=== PATIENT | male | born 1960 | race African-American/Black ===

== ENCOUNTER 2020-04-29 07:27 | Inpatient (IN) ==
[2020-04-26 12:02] LABS: Basophils % 0.8 % (0.0-0.8); Eosinophils % 0.8 % (0.00-10.9); Hematocrit 36.5 VOL% (42.0-52.0); Hemoglobin 11.8 GM/DL (14.0-18.0); Lymphocytes # 1.3 10*3/uL (1.4-4.0); Lymphocytes % 36.3 % (21.2-54.2); Mean Corpuscular HGB Conc 32.3 GM/DL (32-36); Mean Corpuscular Volume 83.5 FL (87-102); Mean Platelet Volume 10.9 FL (9.6-12.0); Monocytes % 9.9 % (1.7-12.7); Neutrophils % 52.2 % (38.7-73.9); Platelet Count 224 T/CUMM (130-400); Red Blood Count 4.37 MC/CUMM (3.8-5.5); Red Cell Distribution Width 12.5 % (9.3-17.3); White Blood Count 3.5 T/CUMM (4-12)
[2020-04-26 12:22] LABS: Albumin 3.5 G/DL (3.4-5.0); Bilirubin,Total 0.6 MG/DL (0.2-1.0); Calcium 9.2 MG/DL (8.5-10.1); Osmolality,Calculated 279.3 MOS/KG (273-304)
[~2020-04-29 07:27] MED LIST: cefOXitin 1,000 MG in SYRINGE 1 EACH IV ONE
[2020-04-29] MEDS ORDERED: PANTOPRAZOLE 40 MG TABLET PO ONE (08:09)
[2020-04-29] MEDS: LACTATED RINGERS 1,000 ML IV SCH (08:28)
[2020-04-29] MEDS ORDERED: FAMOTIDINE 20 MG TABLET ONE (08:30)
[2020-04-29] MEDS ORDERED: FAMOTIDINE 20 MG TABLET PO ONE (09:06)
[2020-04-29] MEDS ORDERED: TISSUE ADHESIVE 1 EACH APPLICATOR TOP ONE (12:56)
[2020-04-29] MEDS ORDERED: BUPIVACAINE 0.5% 50 ML VIAL ONE (12:56)
[2020-04-29] MEDS ORDERED: LIDOCAINE 1%/EPI INJ 20 ML VIAL ONE (12:57)
[2020-04-29] MEDS ORDERED: INDOCYANINE GREEN 25 MG VIAL IV ONE (12:57)
[2020-04-29] MEDS ORDERED: ONDANSETRON 4 MG/2 ML VIAL IV PRN (17:29)
[2020-04-29] MEDS ORDERED: LIDOCAINE 2% 5 ML VIAL ONE (17:45)
[2020-04-29] MEDS ORDERED: MIDAZOLAM 2 MG/2 ML VIAL ONE (17:45)
[2020-04-29] MEDS ORDERED: DEXAMETHASONE 4 MG/1 ML VIAL ONE (17:45)
[2020-04-29] MEDS ORDERED: propofoL 200 MG/20 ML VIAL IV ONE (17:45)
[2020-04-29] MEDS ORDERED: SEVOFLURANE 1 UNIT/15 MINUTE INH ONE (17:45)
[2020-04-29] MEDS ORDERED: ONDANSETRON 4 MG/2 ML VIAL ONE (17:45)
[2020-04-29] MEDS ORDERED: fentaNYL 100 MCG/2 ML VIAL ONE (17:45)
[2020-04-29] MEDS ORDERED: SUCCINYLCHOLINE 200 MG/10 ML VIAL ONE (17:46)
[2020-04-29] MEDS ORDERED: ROCURONIUM 100 MG/10 ML VIAL IV ONE (17:46)
[2020-04-29] MEDS ORDERED: PHENYLEPHRINE 1 MG/10 ML SYRINGE IV ONE (17:46)
[2020-04-29] MEDS ORDERED: ACETAMINOPHEN 1,000 MG/100 ML VIAL IV ONE (17:46)
[2020-04-29] MEDS ORDERED: LACTATED RINGERS 2,000 ML IV ONE (17:46)
[2020-04-29] MEDS ORDERED: GLYCOPYRROLATE 0.4 MG/2 ML VIAL ONE (17:46)
[2020-04-29] MEDS ORDERED: NEOSTIGMINE 10 MG/10 ML VIAL ONE (17:46)
[2020-04-29] MEDS ORDERED: KETOROLAC 30 MG/1 ML VIAL ONE (17:46)
[2020-04-29 18:11] LABS: Hematocrit 32.4 VOL% (42.0-52.0); Hemoglobin 10.6 GM/DL (14.0-18.0)
[2020-04-29] MEDS: ALVIMOPAN 12 MG CAPSULE PO SCH (21:00)
[2020-04-29] MEDS: cefOXitin 2,000 MG in SYRINGE 1 EACH IV SCH (21:04)
[2020-04-29] MEDS: DEXTROSE 5% LACTATED RINGERS 1,000 ML IV SCH (21:06)
[2020-04-30 01:31] LABS: Hematocrit 31.6 VOL% (42.0-52.0); Hemoglobin 10.4 GM/DL (14.0-18.0)
[2020-04-30 01:34] LABS: Osmolality,Calculated 277.5 MOS/KG (273-304)
[2020-04-30] MEDS: DEXTROSE 5% LACTATED RINGERS 1,000 ML IV SCH ×3 (02:23→19:22)
[2020-04-30] MEDS: cefOXitin 2,000 MG in SYRINGE 1 EACH IV SCH ×2 (03:00→09:13)
[2020-04-30 06:41] LABS: Basophils % 0.1 % (0.0-0.8); Hematocrit 30.4 VOL% (42.0-52.0); Immature Granulocytes % 0.4 %; Immature Granulocytes Absolute 0.04 #; Lymphocytes # 0.8 10*3/uL (1.4-4.0); Lymphocytes % 8.3 % (21.2-54.2); Mean Corpuscular HGB Conc 32.9 GM/DL (32-36); Mean Corpuscular Volume 83.5 FL (87-102); Mean Platelet Volume 11.5 FL (9.6-12.0); Monocytes % 6.4 % (1.7-12.7); Neutrophils % 84.8 % (38.7-73.9); Platelet Count 210 T/CUMM (130-400); Red Blood Count 3.64 MC/CUMM (3.8-5.5); Red Cell Distribution Width 12.8 % (9.3-17.3); White Blood Count 9.4 T/CUMM (4-12)
[2020-04-30] MEDS: OLMESARTAN 20 MG TABLET PO SCH (09:28)
[2020-04-30] MEDS: ALVIMOPAN 12 MG CAPSULE PO SCH ×2 (09:29→20:51)
[2020-04-30] MEDS: amLODIPine 10 MG TABLET PO SCH (09:29)
[2020-04-30] MEDS: PANTOPRAZOLE 40 MG TABLET PO SCH (09:30)
[2020-04-30] MEDS: ENOXAPARIN 40 MG/0.4 ML SYRINGE SUBCUT SCH (09:30)
[2020-04-30] MEDS: LACTATED RINGERS 1,000 ML IV SCH (19:27)
[2020-04-30] MEDS: MORPHINE 4 MG/1 ML VIAL IV PRN (20:56)
[2020-05-01] MEDS: DEXTROSE 5% LACTATED RINGERS 1,000 ML IV SCH ×2 (03:14→17:59)
[2020-05-01] MEDS: MORPHINE 4 MG/1 ML VIAL IV PRN (03:20)
[2020-05-01] MEDS: ALVIMOPAN 12 MG CAPSULE PO SCH (09:16)
[2020-05-01] MEDS: ENOXAPARIN 40 MG/0.4 ML SYRINGE SUBCUT SCH (09:16)
[2020-05-01] MEDS: amLODIPine 10 MG TABLET PO SCH (09:16)
[2020-05-01] MEDS: OLMESARTAN 20 MG TABLET PO SCH (09:16)
[2020-05-01] MEDS: PANTOPRAZOLE 40 MG TABLET PO SCH (09:16)
[2020-05-01] MEDS ORDERED: ACETAMINOPHEN 325 MG TABLET PO PRN (17:05)
[2020-05-01] MEDS: LACTATED RINGERS 1,000 ML IV SCH (19:41)
[2020-05-02 05:29] LABS: Basophils % 0.2 % (0.0-0.8); Eosinophils % 0.6 % (0.00-10.9); Hemoglobin 9.2 GM/DL (14.0-18.0); Immature Granulocytes % 0.3 %; Immature Granulocytes Absolute 0.02 #; Lymphocytes # 1.3 10*3/uL (1.4-4.0); Lymphocytes % 20.9 % (21.2-54.2); Mean Corpuscular HGB Conc 31.7 GM/DL (32-36); Mean Corpuscular Volume 85.3 FL (87-102); Mean Platelet Volume 11.3 FL (9.6-12.0); Monocytes % 11.6 % (1.7-12.7); Neutrophils % 66.4 % (38.7-73.9); Platelet Count 167 T/CUMM (130-400); Red Cell Distribution Width 12.7 % (9.3-17.3); White Blood Count 6.2 T/CUMM (4-12)
[2020-05-02 06:05] LABS: Calcium 8.9 MG/DL (8.5-10.1); Osmolality,Calculated 279.3 MOS/KG (273-304)
[2020-05-02] MEDS: OLMESARTAN 20 MG TABLET PO SCH (09:52)
[2020-05-02] MEDS: ENOXAPARIN 40 MG/0.4 ML SYRINGE SUBCUT SCH (09:52)
[2020-05-02] MEDS: PANTOPRAZOLE 40 MG TABLET PO SCH (09:52)
[2020-05-02] MEDS: amLODIPine 10 MG TABLET PO SCH (09:52)
[2020-05-02 11:17] VITALS: BP 149/83
== END 2020-05-02 12:09 | disposition home or self-care (01) | DRG 330 ==
LOC: N.OR 07:27 → N.3E 07:28 → N.SDSINP 07:29
PROVIDERS: ADMIT Surgery; ATTEND Surgery